=== PATIENT | female | born 1935 | race Caucasian/White ===

== ENCOUNTER 2024-04-11 13:59 | Emergency (ER) | payer MEDICARE, SELFPAY ==
[2024-04-11 14:00] VITALS: BP 142/59; PULSE 89; RESP 16; TEMP 36.3; O2SAT 93; BMI 23.7
--- NOTE | 2024-04-11 14:22 | RAD_ITS ---
STUDY: X-RAY - LEFT KNEE REASON FOR EXAM: Female, 88 years old. Pain TECHNIQUE: 2 view(s) of the knee. COMPARISON: None. FINDINGS: There is demineralization of the visualized distal femur. Nondisplaced lateral tibial plateau fracture. Normal proximal tibiofibular articulation. There is moderate degenerative arthrosis of the medial femorotibial compartment with moderate joint space narrowing. There is moderate degenerative arthrosis of the lateral femorotibial compartment with moderate joint space narrowing. There is moderate degenerative arthrosis of the patellofemoral articulation. Joint effusion. RAD/Knee 1 or 2 Views IMPRESSION: Nondisplaced lateral tibial plateau fracture and joint effusion. Electronically Signed: Mannie Juarez MD at 15:21 EDT ,
--- NOTE | 2024-04-11 14:22 | CT_ITS ---
STUDY: CT CERVICAL SPINE WITHOUT CONTRAST REASON FOR EXAM: Female, 88 years old. Head injury due to a fall. RADIATION DOSAGE (If Supplied By Facility): CTDIvol = ( 18.50 ) mGy, DLP = ( 373.13 ) mGycm TECHNIQUE: High resolution transaxial imaging was performed without contrast material. Sagittal and coronal images were reconstructed. Individualized dose optimization techniques were used for this CT. COMPARISON: None FINDINGS: Normal craniovertebral junction. There are degenerative changes of the anterior atlantoaxial articulation. Normal odontoid process. There is straightening of the normal cervical lordosis. Multilevel spondylosis. C2-3: Facet joint osteoarthritis more prominent on the right side. No significant stenosis seen. C3-4: Mild degree of disc space narrowing. Facet joint osteoarthritis and hypertrophy worse on the left side. Uncovertebral arthrosis. Mild bilateral neural foraminal stenosis more prominent on the left side. C4-5: Moderate degree of disc space narrowing and spondylosis. Uncovertebral arthrosis. No significant neural foraminal stenosis seen. C5-6: There is fusion of the disc space. Spondylosis. Uncovertebral arthrosis. Mild degree of bilateral neural foraminal stenosis. C6-7: Marked degree of disc space narrowing. Spondylosis. Mild degree of bilateral neural foraminal stenosis. C7-T1: Normal endplates. Normal disc height and morphology. Normal central canal and intervertebral neuroforamina. Atherosclerotic plaque formation at the carotid bifurcations bilaterally. CT/Spine Cervical without Contras IMPRESSION: Multilevel degenerative changes, as described above. Electronically Signed: Mannie Juarez MD at 15:14 EDT ,
--- NOTE | 2024-04-11 14:22 | CT_ITS ---
STUDY: CT BRAIN WITHOUT CONTRAST REASON FOR EXAM: Female, 88 years old. Head trauma due to a fall. RADIATION DOSAGE (If Supplied By Facility): CTDIvol = ( 44.99 ) mGy, DLP = ( 779.24 ) mGycm TECHNIQUE: Transaxial CT imaging of the brain was performed without administration of intravenous contrast material. Individualized dose optimization techniques were used for this CT. COMPARISON: No relevant priors. FINDINGS: Normal soft tissue structures. Normal calvarium. There is moderate cerebral atrophy with widening of the extra-axial spaces and ventricular dilatation. There are areas of decreased attenuation within the white matter tracts of the supratentorial brain, consistent with microvascular disease changes. 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 Normal brainstem. Normal cerebellum. There is no intracranial hemorrhage. There are no findings of an acute ischemic infarction. Atherosclerotic calcification of the cavernous portions of the internal carotid arteries bilaterally. Normal visualized paranasal sinuses. CT/Brain/Head without Contrast IMPRESSION: Chronic involutional changes of the brain. Electronically Signed: Mannie Juarez MD at 15:11 EDT ,
--- NOTE | 2024-04-11 14:22 | RAD_ITS ---
STUDY: X-RAY - PELVIS REASON FOR EXAM: Female, 88 years old. Left lower extremity pain following a fall. TECHNIQUE: One view of the pelvis was obtained. COMPARISON: None. FINDINGS: There is a non-specific bowel gas pattern. Normal visualized soft tissue structures. There is narrowing with cortical sclerosis and osteophyte formation of the sacroiliac joint consistent with degenerative osteoarthritic changes. Normal visualized bilateral superior and inferior pubic rami. There is narrowing with sclerosis of the pubic symphysis. Normal ischial tuberosities. Normal visualized right femoral head. Normal right acetabulum. There is moderate articular joint space narrowing of the right hip. Normal visualized left femoral head. Normal left acetabulum. There is moderate articular joint space narrowing of the left hip. Displaced narrowing in the lower lumbar spine. RAD/Pelvis 1 or 2 Views IMPRESSION: Degenerative changes of both hip joints and the sacroiliac joints. No fracture or dislocation is seen. Electronically Signed: Mannie Juarez MD at 15:23 EDT ,
--- NOTE | 2024-04-11 14:23 | EKG12_ITS ---
Test Reason : FALL Blood Pressure : / mmHG Vent. Rate : 099 BPM Atrial Rate : 099 BPM P-R Int : 158 ms QRS Dur : 070 ms QT Int : 324 ms P-R-T Axes : 047 -12 053 degrees QTc Int : 415 ms Normal sinus rhythm Inferior infarct , age undetermined Abnormal ECG Confirmed by CHRIS LEVIN, CHIO ([id number]), assistant film editor JULY WEBB ([id number]) on 04/12/2024 10:20:12 AM Referred By: Confirmed By:CHIO PEREZ MD
--- NOTE | 2024-04-11 14:24 | ED.VIS.LOWEX ---
HPI History of Present Illness Chief Complaint: Lower Extremity Injury Narrative Narrative: 88-year-old female presenting after injury to the left leg on Wednesday. Her daughter states she found her in the middle of the night on the floor in the bathroom between the toilet and the wall. Patient does not remember the fall or what happened. She is a poor informant secondary to dementia per her daughter. Patient feels she was very dizzy before she fell. Denies chest pain or shortness of breath. Patient states that she hurt her left leg. Daughter states has been trying to ice it and rest and wrap it but she is not able to bear weight on the left lower extremity. Patient has pain in the left hip and the left knee. [facility] Medical History Hypertension Diabetes Home Medications ?Medication ?Instructions ?Recorded ?Last Taken ?Type amlodipine 10 mg tablet 10 mg PO QHS BLOOD PRESSURE 04/11/24 04/10/24 History glimepiride 4 mg tablet 4 mg PO BID DIABETES 04/11/24 04/11/24 History lisinopril 40 mg tablet 40 mg PO DAILY BLOOD PRESSURE 04/11/24 04/11/24 History metformin 500 mg tablet,extended 500 mg PO BID DIABETES 04/11/24 04/11/24 History release 24 hr pioglitazone 15 mg tablet 15 mg PO DAILY DIABETES 04/11/24 04/11/24 History sitagliptin phosphate 100 mg 100 mg PO DAILY DIABETES 04/11/24 04/11/24 History tablet (Januvia) Allergy/AdvReac Type Severity Reaction Status Date / Time No Known Allergies Allergy Verified 04/11/24 14:01 Family History Other Diabetes Surgical History unable to obtain Social History adopted: No service: No Smoking Status: Never smoker ROS ROS ED Constitutional Constitutional ED: Denies chills, fever(s) or sweats Eyes Eyes: Denies blurry vision or change in vision ENT ENT ED: Denies ear pain or sore throat Cardiovascular Cardiovascular: Denies chest pain, palpitations or racing heartbeat Respiratory/Chest Respiratory/Chest: Denies cough, dyspnea or sputum Gastrointestinal Gastrointestinal: Denies abdominal pain, constipation, diarrhea, nausea or vomiting Genitourinary Genitourinary ED: Denies dysuria, hematuria or urinary frequency Musculoskeletal Musculoskeletal: Denies arthralgias, myalgias or neck pain Integumentary Denies abscess, Abrasions or rash Neurologic Neurologic: Denies headache(s), paresthesias or weakness Psychiatric Psychiatric: Denies anxiety, depression, suicidal ideation or suicidal thoughts Endocrine Endocrinology: Denies polydipsia or polyuria EXAM Physical Exam Const Vital Signs: 04/11/24 14:00 04/11/24 16:00 Temperature 97.3 F L Temperature Source Temporal Pulse Rate 89 94 Respiratory Rate 16 18 Blood Pressure 142/59 H 140/65 H Blood Pressure Mean 86 90 Pulse Ox 93 92 Oxygen Delivery Method Room Air Room Air Positive well nourished General Appearance ED: NAD HEENT Reports moist mucous membranes normocephalic and atraumatic Eyes PERRL Neck full ROM Neck Narrative: No midline spinal tenderness, deformity, step-off. Chest Wall inspection of chest normal Resp normal respiratory effort, no retractions and clear to auscultation bilaterally Cardio regular rate and regular rhythm Extremity Extremity Narrative: Tenderness to palpation just below the level of the left greater trochanter. Negative logroll. Leg does not appear shortened or externally rotated. Left knee. Knee has no tenderness to palpation over the patella but there is tenderness over the tibial region proximally. No ligamentous laxity. No deformity or bruising. The rest of the lower extremities neurovascular intact brisk up refill to all 5 toes without any evidence of injury or tenderness to palpation. Neuro oriented x3 Sensorium / Orientation: alert Motor Exam: strength 5/5 throughout Psych mental status grossly normal MDM MDM MDM Narrative Medical decision making narrative: Patient presenting with left lower extremity injury. She is a poor informant per daughter secondary to dementia. She does not remember the factors of the fall but believes she may have been dizzy. Differential includes ACS, dysrhythmia, dehydration, anemia, electrolyte abnormalities, left hip fracture, left femur fracture, knee fracture, intracranial hemorrhage, C-spine fracture. Patient declines analgesia. CBC will be obtained to assess white blood cell count, hemoglobin, platelets. BMP to assess renal function, electrolytes, glucose. High-sensitivity troponin and EKG to assess for ischemia/dysrhythmia. X-rays of the left hip, left femur, left knee will be obtained. Views of the pelvis, left hip, femur, left knee all negative for acute fracture or subluxation on my interpretation with exception of the knee which shows a nondisplaced tibial plateau fracture. There is a slight knee effusion. CT brain and cervical spine were negative. Patient's blood work shows a white blood cell count 11.2. Hemoglobin 12.6. Platelets are normal at 258. Electrolytes are normal. Creatinine slightly low at 1.24 without comparison. Glucose is 398. High-sensitivity troponin is 5. EKG interpreted by myself shows a sinus rhythm at 99 bpm without sign of ischemic change or ectopy. Discussed the case with Dr. Smith who is on-call for orthopedics and recommended a knee immobilizer and he can follow-up with him in the office. The patient was offered detention facility due to the tibial plateau fracture difficulty ambulation however daughter feels that she can take care of her. Patient's blood sugar was elevated today at 398 she received a liter of IV fluids and her blood sugar is now 298. Reviewed the medical record on [facility] and it appears the patient's A1c was 9.2. Documentation states that the patient has chronic uncontrolled hyperglycemia. There is some possible confusion as to whether the patient was taking her meds correctly and this was discussed with her daughter who is here with her who can follow-up with her PCP on an outpatient basis as she does express the patient is having some trouble with dementia. I do not believe the patient needs admitted and that she wants to go to detention however she is declining and the daughter states that she can take care of her. Given this I will discharge her home. Follow-up with orthopedics. Impression: 1. Fall 2. Hyperglycemia 3. Tibial plateau fracture Lab Data Attestation: I reviewed the patient's lab results. Labs: Laboratory Results - last 24 hr 04/11/24 14:46 WBC 11.2 H RBC 4.13 L Hgb 12.6 Hct 37.0 MCV 89.6 MCH 30.5 MCHC 34.1 RDW Std Deviation 41.3 RDW Coeff of En 12.5 Plt Count 258 MPV 11.4 Immature Gran % (Auto) 0.400 Neut % (Auto) 87.4 H Lymph % (Auto) 6.3 L [place] % (Auto) 5.5 Eos % (Auto) 0.2 Baso % (Auto) 0.2 Absolute Neuts (auto) 9.8 H Absolute Lymphs (auto) 0.71 L Nucleated RBC % 0 Sodium 134 L Potassium 3.6 Chloride 101 Carbon Dioxide 25.0 Anion Gap 8 BUN 26 H Creatinine 1.24 H Estim Creat Clear Calc 28.12 Est GFR (MDRD) Af Amer 53 L Est GFR (MDRD) Non-Af 44 L BUN/Creatinine Ratio 21.0 H Glucose 398 H Calcium 9.0 Troponin I High Sens 5 Radiography Diagnostic Testing: Clinical Impression(s) from Imaging Studies Brain CT 04/11/24 14:22 IMPRESSION: Chronic involutional changes of the brain. Electronically Signed: Mannie uJarez MD at 15:11 EDT , Cervical Spine CT 04/11/24 14:22 IMPRESSION: Multilevel degenerative changes, as described above. Electronically Signed: Mannie Juarez MD at 15:14 EDT , Knee X-Ray 04/11/24 14:22 IMPRESSION: Nondisplaced lateral tibial plateau fracture and joint effusion. Electronically Signed: Mannie Juarez MD at 15:21 EDT , Pelvis X-Ray 04/11/24 14:22 IMPRESSION: Degenerative changes of both hip joints and the sacroiliac joints. No fracture or dislocation is seen. Electronically Signed: Mannie Juarez MD at 15:23 EDT , Femur X-Ray 04/11/24 15:05 IMPRESSION: Soft tissue swelling and joint effusion. Degenerative changes. Nondisplaced left tibial plateau fracture. Electronically Signed: Mannie Juarez MD at 15:20 EDT , Discharge Plan Triage Chief Complaint: Lower Extremity Injury ED Provider: Eugenio Leon Dx/Rx/DC Orders Clinical Impression: Fracture of tibial plateau Instructions: ED Diabetic Hyperglycemia, ED Fracture, Knee Prescriptions: No Action metformin 500 mg tablet extended release 24 hr 500 mg PO BID glimepiride 4 mg tablet 4 mg PO BID lisinopril 40 mg tablet 40 mg PO DAILY Januvia 100 mg tablet 100 mg PO DAILY amlodipine 10 mg tablet 10 mg PO QHS pioglitazone 15 mg tablet 15 mg PO DAILY Primary Care Provider: JANELLE VARGAS CNP Referrals: JANELLE VARGAS CNP [Other] Bashir Smith DO [Med Staff - Active Staff] - 3-5 Days Print Language: Bulgarian Disposition Disposition: Home, Self Care
--- NOTE | 2024-04-11 14:25 | NURSING ---
NO OLD EKGS
[2024-04-11 14:59] LABS: Absolute Lymphocyte Count 0.71 X10^3/uL (0.83-4.51); Absolute Neutrophil Count 9.8 X10^3/uL (2.0-7.7); Basophil# 0.02 X10^3/uL; Basophil% 0.2 % (0-1); Eosinophil# 0.02 X10^3/uL; Eosinophils% 0.2 % (0-5); Hemoglobin 12.6 g/dL (12.0-15.0); Lymphocyte # 0.71 X10^3/ul (0.83-4.51); Lymphocyte % 6.3 % (19-41); Mean Corp Hgb Conc 34.1 g/dL (32-36); Mean Corpuscular Hgb 30.5 pg (27.0-32.0); Mean Corpuscular Volume 89.6 fL (81-99); Mean Platelet Vol. 11.4 fl (6.2-12.0); Monocyte# 0.62 X10^3/uL; Monocyte% 5.5 % (0-10); NRBC Flagged by Analyzer 0 % (0-5); Neutrophil # 9.83 X10^3/uL (2.7-7.7); Neutrophil % 87.4 % (47-70); Platelet Count 258 K/mm3 (150-450); RBC Distribution Width CV 12.5 % (11.6-14.6); RBC Distribution Width SD 41.3 fl (35.1-43.9); Red Blood Count 4.13 M/mm3 (4.2-5.4); White Blood Count 11.2 K/mm3 (4.4-11.0)
--- NOTE | 2024-04-11 15:05 | RAD_ITS ---
STUDY: X-RAY - LEFT FEMUR REASON FOR STUDY: Female, 88 years old. Pain following a fall. TECHNIQUE: 4 view(s) of the femur. COMPARISON: None. FINDINGS: Normal visualized femur. Soft tissue swelling. Joint effusion. Chondrocalcinosis of the medial and lateral menisci. Nondisplaced lateral tibial plateau fracture. RAD/Femur Min 2 Views IMPRESSION: Soft tissue swelling and joint effusion. Degenerative changes. Nondisplaced left tibial plateau fracture. Electronically Signed: Mannie Juarez MD at 15:20 EDT ,
[2024-04-11 15:14] LABS: Anion Gap 8 (5-15); BUN 26 mg/dL (7-18); Chloride 101 mmol/L (98-107); Creatinine, Serum 1.24 mg/dL (0.55-1.02); EST Glomerular Filtration Rate 44 mL/min (>60); Est Glom Filt Rate - Afr Amer 53 mL/min (>60); Estimated Creatinine Clearance 28.12 ml/min; Glucose 398 mg/dL (74-106); Potassium 3.6 mmol/L (3.5-5.1); Sodium Level 134 mmol/L (136-145); Troponin-I HS 5 pg/mL (3.0-54.0)
[2024-04-11] MEDS: 0.9% Normal Saline (1000mL) 1,000 ML 999 ML IV (15:30)
--- NOTE | 2024-04-11 15:53 | NURSING ---
NO OLD EKGS
[2024-04-11 16:00] VITALS: BP 140/65; PULSE 94; RESP 18; O2SAT 92
[2024-04-11 17:32] LABS: Bedside Glucose 289 mg/dL (74-106)
[2024-04-11 17:33] VITALS: BP 160/69; PULSE 96; RESP 16; TEMP 36.6; O2SAT 96
== END 2024-04-11 17:41 | disposition home or self-care (01) ==
PROVIDERS: Emergency Provider Student in an Organized Health Care Education/Training Program; Visit Provider Student in an Organized Health Care Education/Training Program
DX: S82.145A Nondisplaced bicondylar fracture of left tibia, initial encounter for closed fracture (principal); F03.90 Unspecified dementia, unspecified severity, without behavioral disturbance, psychotic disturbance, mood disturbance, and anxiety; E11.65 Type 2 diabetes mellitus with hyperglycemia; M25.552 Pain in left hip; I10 Essential (primary) hypertension; R42 Dizziness and giddiness; Z79.899 Other long term (current) drug therapy; Z79.84 Long term (current) use of oral hypoglycemic drugs; W00.0XXA Fall on same level due to ice and snow, initial encounter
CPT/HCPCS: 70450; 72125; 72170; 73552; 73560; 80048; 82962; 84484; 85025; 93005; 96360; 96361; 99284